=== PATIENT | female | born 1950 | race Caucasian/White ===

== ENCOUNTER 2016-08-07 12:25 | Inpatient (IN) | payer MEDICARE, BC ==
[2016-08-07 13:42] VITALS: BMI 22.2
[2016-08-07] MEDS: Donepezil HCl 10 MG TAB PO SCH (20:50)
[2016-08-07] MEDS: Simvastatin 20 MG TAB PO SCH (20:51)
[2016-08-07] MEDS: FLU VACC TS2016-17(65YR +) 0.5 ML SYRINGE IM ONE (22:01)
[2016-08-08 06:29] LABS: #Basophils 0.1 thou/uL (0.0-0.2); #Eosinphils 0.1 thou/uL (0.0-0.7); #Lymphocytes 2.4 thou/uL (1.20-3.40); #Monocytes 0.7 thou/uL (0.11-0.59); #Neutrophils 6.6 thou/uL (1.40-6.50); %Basophils 0.8 % (0.0-1.0); %Eosinophils 0.5 % (0.0-10.0); %Monocytes 7.1 % (0.0-10.0); Hematocrit 36.3 % (36.0-47.0); Mean Platelet Volume 5.9 fL (7.4-10.4); Red Blood Cell (RBC) Count 3.72 mill/uL (4.20-5.40); White Blood Cell (WBC) Count 9.9 thou/uL (4.8-10.8)
[2016-08-08 06:36] LABS: ALT (SGPT) 37 U/L (0-55); AST (SGOT) 25 U/L (5-34); Alkaline Phosphatase 85 U/L (40-150); Anion Gap 13 mmol/L (10-20); BUN (Urea Nitrogen) 14 mg/dL (9.8-20.1); Bilirubin, Total 0.4 mg/dL (0.2-1.2); Calc. Creatinine Clearance 72 mL/min (70-130); Calcium 9.2 mg/dL (7.8-10.44); Carbon Dioxide 25 mmol/L (23-31); Chloride 107 mmol/L (98-107); Estimated GFR-MDRD 81; Globulin 2.5 g/dL (2.4-3.5); Protein, Total 6.2 g/dL (5.8-8.1)
[2016-08-08] MEDS: Enoxaparin Sodium 30 MG/0.3 ML SYRINGE SC SCH (06:42)
[2016-08-08] MEDS: Montelukast Sodium 10 mg Tablet PO SCH (08:51)
[2016-08-08] MEDS: risperiDONE 0.5 MG TAB PO SCH (08:51)
[2016-08-08] MEDS: FLU VACC TS2016-17(65YR +) 0.5 ML SYRINGE IM ONE (14:00)
[2016-08-08 16:07] LABS: Bilirubin Negative (Negative); Blood, Urine Negative (Negative); Glucose, Urine (Dipstick) Negative (Negative); Ketone, Urine Negative (Negative); Nitrite Negative (Negative); Protein, Urine (Dipstick) Negative (Neg-Trace); Urobilinogen 0.2 mg/dL (0.2-1.0)
[2016-08-08 16:36] LABS: Bacteria/HPF None Seen HPF (None Seen); RBC/HPF None Seen HPF (0-3); WBC/HPF None Seen HPF (0-3)
[2016-08-08] MEDS: Donepezil HCl 10 MG TAB PO SCH (22:02)
[2016-08-08] MEDS: Simvastatin 20 MG TAB PO SCH (22:03)
[2016-08-09] MEDS: Enoxaparin Sodium 30 MG/0.3 ML SYRINGE SC SCH (05:26)
[2016-08-09] MEDS: risperiDONE 0.5 MG TAB PO SCH (09:20)
[2016-08-09] MEDS: Montelukast Sodium 10 mg Tablet PO SCH (09:20)
[2016-08-09] MEDS: Simvastatin 20 MG TAB PO SCH (21:11)
[2016-08-09] MEDS: Donepezil HCl 10 MG TAB PO SCH (21:11)
[2016-08-10] MEDS: Enoxaparin Sodium 30 MG/0.3 ML SYRINGE SC SCH (05:41)
[2016-08-10] MEDS: Acetaminophen 500 MG TAB PO PRN (09:49)
[2016-08-10] MEDS: risperiDONE 0.5 MG TAB PO SCH (09:49)
[2016-08-10] MEDS: Montelukast Sodium 10 mg Tablet PO SCH (09:49)
[2016-08-10] MEDS: Donepezil HCl 10 MG TAB PO SCH (21:00)
[2016-08-10] MEDS: Simvastatin 20 MG TAB PO SCH (21:03)
[2016-08-11] MEDS: Enoxaparin Sodium 30 MG/0.3 ML SYRINGE SC SCH (05:27)
[2016-08-11] MEDS: Acetaminophen 500 MG TAB PO PRN (09:06)
[2016-08-11] MEDS: risperiDONE 0.5 MG TAB PO SCH (09:06)
[2016-08-11] MEDS: Montelukast Sodium 10 mg Tablet PO SCH (09:06)
[2016-08-11] MEDS: Donepezil HCl 10 MG TAB PO SCH (21:15)
[2016-08-11] MEDS: Simvastatin 20 MG TAB PO SCH (21:20)
[2016-08-12] MEDS: Enoxaparin Sodium 30 MG/0.3 ML SYRINGE SC SCH (05:09)
[2016-08-12] MEDS: risperiDONE 0.5 MG TAB PO SCH (08:50)
[2016-08-12] MEDS: Montelukast Sodium 10 mg Tablet PO SCH (08:51)
[2016-08-12] MEDS: Simvastatin 20 MG TAB PO SCH (21:04)
[2016-08-12] MEDS: Donepezil HCl 10 MG TAB PO SCH (21:04)
[2016-08-13] MEDS: Enoxaparin Sodium 30 MG/0.3 ML SYRINGE SC SCH (05:41)
[2016-08-13] MEDS: risperiDONE 0.5 MG TAB PO SCH (10:37)
[2016-08-13] MEDS: Montelukast Sodium 10 mg Tablet PO SCH (10:37)
[2016-08-13] MEDS: Donepezil HCl 10 MG TAB PO SCH (20:49)
[2016-08-13] MEDS: Simvastatin 20 MG TAB PO SCH (20:50)
[2016-08-14] MEDS: Enoxaparin Sodium 30 MG/0.3 ML SYRINGE SC SCH (06:00)
[2016-08-14] MEDS: Montelukast Sodium 10 mg Tablet PO SCH (08:24)
[2016-08-14] MEDS: risperiDONE 0.5 MG TAB PO SCH (08:24)
[2016-08-14] MEDS: Simvastatin 20 MG TAB PO SCH (21:12)
[2016-08-14] MEDS: Donepezil HCl 10 MG TAB PO SCH (21:13)
[2016-08-15] MEDS: Enoxaparin Sodium 30 MG/0.3 ML SYRINGE SC SCH (05:12)
[2016-08-15] MEDS: Montelukast Sodium 10 mg Tablet PO SCH (10:36)
[2016-08-15] MEDS: Acetaminophen 500 MG TAB PO PRN (10:36)
[2016-08-15] MEDS: risperiDONE 0.5 MG TAB PO SCH (10:36)
[2016-08-15] MEDS: Donepezil HCl 10 MG TAB PO SCH (20:43)
[2016-08-15] MEDS: Simvastatin 20 MG TAB PO SCH (20:43)
[2016-08-16] MEDS: Enoxaparin Sodium 30 MG/0.3 ML SYRINGE SC SCH (06:00)
[2016-08-16] MEDS: Acetaminophen 500 MG TAB PO PRN (09:03)
[2016-08-16] MEDS: risperiDONE 0.5 MG TAB PO SCH (09:03)
[2016-08-16] MEDS: Montelukast Sodium 10 mg Tablet PO SCH (09:03)
[2016-08-16] MEDS: Donepezil HCl 10 MG TAB PO SCH (21:26)
[2016-08-16] MEDS: Simvastatin 20 MG TAB PO SCH (21:26)
[2016-08-17] MEDS: Acetaminophen 500 MG TAB PO PRN (01:11)
[2016-08-17] MEDS: Enoxaparin Sodium 30 MG/0.3 ML SYRINGE SC SCH (05:12)
[2016-08-17] MEDS: risperiDONE 0.5 MG TAB PO SCH (08:24)
[2016-08-17] MEDS: Montelukast Sodium 10 mg Tablet PO SCH (08:24)
[2016-08-17] MEDS: Donepezil HCl 10 MG TAB PO SCH (20:26)
[2016-08-17] MEDS: Simvastatin 20 MG TAB PO SCH (20:27)
[2016-08-18] MEDS: Enoxaparin Sodium 30 MG/0.3 ML SYRINGE SC SCH (05:31)
[2016-08-18] MEDS: Montelukast Sodium 10 mg Tablet PO SCH (08:39)
[2016-08-18] MEDS: risperiDONE 0.5 MG TAB PO SCH (08:39)
[2016-08-18] MEDS: Donepezil HCl 10 MG TAB PO SCH (20:41)
[2016-08-18] MEDS: Simvastatin 20 MG TAB PO SCH (20:41)
[2016-08-18] MEDS: Lorazepam 0.5 MG TAB PO PRN (20:41)
[2016-08-19] MEDS: Enoxaparin Sodium 30 MG/0.3 ML SYRINGE SC SCH (06:00)
[2016-08-19] MEDS: Montelukast Sodium 10 mg Tablet PO SCH (09:34)
[2016-08-19] MEDS: risperiDONE 0.5 MG TAB PO SCH (09:35)
[2016-08-19] MEDS: Simvastatin 20 MG TAB PO SCH (20:56)
[2016-08-19] MEDS: Donepezil HCl 10 MG TAB PO SCH (20:56)
[2016-08-20] MEDS: Enoxaparin Sodium 30 MG/0.3 ML SYRINGE SC SCH (05:45)
[2016-08-20] MEDS: risperiDONE 0.5 MG TAB PO SCH (08:36)
[2016-08-20] MEDS: Montelukast Sodium 10 mg Tablet PO SCH (08:36)
[2016-08-20] MEDS: Simvastatin 20 MG TAB PO SCH (20:24)
[2016-08-20] MEDS: Donepezil HCl 10 MG TAB PO SCH (20:25)
[2016-08-20] MEDS: Lorazepam 0.5 MG TAB PO PRN (20:26)
[2016-08-21] MEDS: Enoxaparin Sodium 30 MG/0.3 ML SYRINGE SC SCH (05:52)
[2016-08-21] MEDS: risperiDONE 0.5 MG TAB PO SCH (08:21)
[2016-08-21] MEDS: Montelukast Sodium 10 mg Tablet PO SCH (08:22)
[2016-08-21] MEDS: Acetaminophen 500 MG TAB PO PRN (20:38)
[2016-08-21] MEDS: Lorazepam 0.5 MG TAB PO PRN (20:38)
[2016-08-21] MEDS: Donepezil HCl 10 MG TAB PO SCH (20:38)
[2016-08-21] MEDS: Simvastatin 20 MG TAB PO SCH (20:39)
[2016-08-22] MEDS: Enoxaparin Sodium 30 MG/0.3 ML SYRINGE SC SCH (05:56)
[2016-08-22] MEDS: Montelukast Sodium 10 mg Tablet PO SCH (09:08)
[2016-08-22] MEDS: Lorazepam 0.5 MG TAB PO PRN ×2 (09:09→21:04)
[2016-08-22] MEDS: risperiDONE 0.5 MG TAB PO SCH (09:09)
[2016-08-22] MEDS: Donepezil HCl 10 MG TAB PO SCH (21:02)
[2016-08-22] MEDS: Acetaminophen 500 MG TAB PO PRN (21:03)
[2016-08-22] MEDS: Simvastatin 20 MG TAB PO SCH (21:03)
[2016-08-23] MEDS: Enoxaparin Sodium 30 MG/0.3 ML SYRINGE SC SCH (05:54)
[2016-08-23] MEDS: risperiDONE 0.5 MG TAB PO SCH (09:58)
[2016-08-23] MEDS: Montelukast Sodium 10 mg Tablet PO SCH (09:58)
[2016-08-23] MEDS: Acetaminophen 500 MG TAB PO PRN (20:19)
[2016-08-23] MEDS: Simvastatin 20 MG TAB PO SCH (20:20)
[2016-08-23] MEDS: Donepezil HCl 10 MG TAB PO SCH (20:20)
[2016-08-24] MEDS: Enoxaparin Sodium 30 MG/0.3 ML SYRINGE SC SCH (06:09)
[2016-08-24] MEDS: Montelukast Sodium 10 mg Tablet PO SCH (08:56)
[2016-08-24] MEDS: risperiDONE 0.5 MG TAB PO SCH (08:56)
[2016-08-24] MEDS: Acetaminophen 500 MG TAB PO PRN (16:21)
[2016-08-24] MEDS: Donepezil HCl 10 MG TAB PO SCH (20:47)
[2016-08-24] MEDS: Simvastatin 20 MG TAB PO SCH (20:47)
[2016-08-25] MEDS: Lorazepam 0.5 MG TAB PO PRN ×2 (00:31→20:15)
[2016-08-25] MEDS: Acetaminophen 500 MG TAB PO PRN ×3 (00:31→20:14)
[2016-08-25] MEDS: Enoxaparin Sodium 30 MG/0.3 ML SYRINGE SC SCH (05:18)
[2016-08-25] MEDS: risperiDONE 0.5 MG TAB PO SCH (09:07)
[2016-08-25] MEDS: Montelukast Sodium 10 mg Tablet PO SCH (09:07)
[2016-08-25] MEDS: Simvastatin 20 MG TAB PO SCH (20:14)
[2016-08-25] MEDS: Donepezil HCl 10 MG TAB PO SCH (20:15)
[2016-08-26] MEDS: Enoxaparin Sodium 30 MG/0.3 ML SYRINGE SC SCH (05:39)
[2016-08-26] MEDS: Montelukast Sodium 10 mg Tablet PO SCH (09:13)
[2016-08-26] MEDS: risperiDONE 0.5 MG TAB PO SCH (09:14)
[2016-08-26] MEDS: Simvastatin 20 MG TAB PO SCH (20:44)
[2016-08-26] MEDS: Donepezil HCl 10 MG TAB PO SCH (20:44)
[2016-08-26] MEDS: Lorazepam 0.5 MG TAB PO PRN (20:44)
[2016-08-27] MEDS: Enoxaparin Sodium 30 MG/0.3 ML SYRINGE SC SCH (06:09)
[2016-08-27] MEDS: risperiDONE 0.5 MG TAB PO SCH (09:32)
[2016-08-27] MEDS: Montelukast Sodium 10 mg Tablet PO SCH (09:32)
[2016-08-27] MEDS: Simvastatin 20 MG TAB PO SCH (21:25)
[2016-08-27] MEDS: Donepezil HCl 10 MG TAB PO SCH (21:25)
[2016-08-28] MEDS: Enoxaparin Sodium 30 MG/0.3 ML SYRINGE SC SCH (05:29)
[2016-08-28] MEDS: Montelukast Sodium 10 mg Tablet PO SCH (09:15)
[2016-08-28] MEDS: risperiDONE 0.5 MG TAB PO SCH (09:15)
[2016-08-28] MEDS: Simvastatin 20 MG TAB PO SCH (20:47)
[2016-08-28] MEDS: Donepezil HCl 10 MG TAB PO SCH (20:48)
[2016-08-29] MEDS: Enoxaparin Sodium 30 MG/0.3 ML SYRINGE SC SCH (05:39)
[2016-08-29] MEDS: Acetaminophen 500 MG TAB PO PRN (08:44)
[2016-08-29] MEDS: risperiDONE 0.5 MG TAB PO SCH (08:44)
[2016-08-29] MEDS: Montelukast Sodium 10 mg Tablet PO SCH (08:44)
[2016-08-29] MEDS: Simvastatin 20 MG TAB PO SCH (20:38)
[2016-08-29] MEDS: Donepezil HCl 10 MG TAB PO SCH (20:38)
[2016-08-29] MEDS: Lorazepam 0.5 MG TAB PO PRN (22:02)
[2016-08-30] MEDS: Enoxaparin Sodium 30 MG/0.3 ML SYRINGE SC SCH (05:21)
[2016-08-30] MEDS: Montelukast Sodium 10 mg Tablet PO SCH (10:50)
[2016-08-30] MEDS: risperiDONE 0.5 MG TAB PO SCH (10:51)
[2016-08-30] MEDS: Donepezil HCl 10 MG TAB PO SCH (20:50)
[2016-08-30] MEDS: Simvastatin 20 MG TAB PO SCH (20:50)
[2016-08-30] MEDS: Lorazepam 0.5 MG TAB PO PRN (21:53)
[2016-08-31] MEDS: Enoxaparin Sodium 30 MG/0.3 ML SYRINGE SC SCH (05:12)
[2016-08-31] MEDS: risperiDONE 0.5 MG TAB PO SCH (10:24)
[2016-08-31] MEDS: Montelukast Sodium 10 mg Tablet PO SCH (10:25)
[2016-08-31] MEDS: Donepezil HCl 10 MG TAB PO SCH (21:18)
[2016-08-31] MEDS: Simvastatin 20 MG TAB PO SCH (21:18)
[2016-09-01] MEDS: Enoxaparin Sodium 30 MG/0.3 ML SYRINGE SC SCH (06:10)
[2016-09-01] MEDS: Montelukast Sodium 10 mg Tablet PO SCH (09:10)
[2016-09-01] MEDS: risperiDONE 0.5 MG TAB PO SCH (09:11)
[2016-09-01] MEDS: Simvastatin 20 MG TAB PO SCH (20:56)
[2016-09-01] MEDS: Donepezil HCl 10 MG TAB PO SCH (20:56)
[2016-09-01 22:09] LABS: Bilirubin Negative (Negative); Blood, Urine Small (Negative); Glucose, Urine (Dipstick) Negative (Negative); Ketone, Urine Negative (Negative); Nitrite Negative (Negative); Protein, Urine (Dipstick) Negative (Neg-Trace); Urobilinogen 0.2 mg/dL (0.2-1.0)
[2016-09-01 22:11] LABS: Bacteria/HPF 3+ HPF (None Seen); Squamous Epithelial 0-3 HPF (0-3)
[2016-09-01] MEDS ORDERED: Sulfameth/Trimethoprim DS 800-160mg TAB PO SCH (22:30)
[2016-09-02] MEDS: Enoxaparin Sodium 30 MG/0.3 ML SYRINGE SC SCH (05:16)
[2016-09-02] MEDS: Sulfameth/Trimethoprim DS 800-160mg TAB PO SCH ×2 (09:24→20:49)
[2016-09-02] MEDS: risperiDONE 0.5 MG TAB PO SCH (09:25)
[2016-09-02] MEDS: Montelukast Sodium 10 mg Tablet PO SCH (09:25)
[2016-09-02] MEDS: Simvastatin 20 MG TAB PO SCH (20:47)
[2016-09-02] MEDS: Donepezil HCl 10 MG TAB PO SCH (20:48)
[2016-09-02] MEDS: Lorazepam 0.5 MG TAB PO PRN (22:18)
[2016-09-03] MEDS: Enoxaparin Sodium 30 MG/0.3 ML SYRINGE SC SCH (05:21)
[2016-09-03] MEDS: risperiDONE 0.5 MG TAB PO SCH (09:56)
[2016-09-03] MEDS: Sulfameth/Trimethoprim DS 800-160mg TAB PO SCH ×2 (09:57→20:55)
[2016-09-03] MEDS: Montelukast Sodium 10 mg Tablet PO SCH (09:57)
[2016-09-03] MEDS: Lorazepam 0.5 MG TAB PO PRN (20:54)
[2016-09-03] MEDS: Acetaminophen 500 MG TAB PO PRN (20:55)
[2016-09-03] MEDS: Simvastatin 20 MG TAB PO SCH (20:55)
[2016-09-03] MEDS: Donepezil HCl 10 MG TAB PO SCH (20:56)
[2016-09-04] MEDS: Enoxaparin Sodium 30 MG/0.3 ML SYRINGE SC SCH (05:52)
[2016-09-04] MEDS: Montelukast Sodium 10 mg Tablet PO SCH (09:24)
[2016-09-04] MEDS: risperiDONE 0.5 MG TAB PO SCH (09:24)
[2016-09-04] MEDS: Sulfameth/Trimethoprim DS 800-160mg TAB PO SCH ×2 (09:24→20:36)
[2016-09-04] MEDS: Acetaminophen 500 MG TAB PO PRN (20:36)
[2016-09-04] MEDS: Simvastatin 20 MG TAB PO SCH (20:36)
[2016-09-04] MEDS: Lorazepam 0.5 MG TAB PO PRN (20:37)
[2016-09-04] MEDS: Donepezil HCl 10 MG TAB PO SCH (20:37)
[2016-09-05] MEDS: Enoxaparin Sodium 30 MG/0.3 ML SYRINGE SC SCH (05:55)
[2016-09-05] MEDS: Sulfameth/Trimethoprim DS 800-160mg TAB PO SCH ×2 (09:03→20:17)
[2016-09-05] MEDS: Montelukast Sodium 10 mg Tablet PO SCH (09:03)
[2016-09-05] MEDS: risperiDONE 0.5 MG TAB PO SCH (09:03)
[2016-09-05] MEDS: Donepezil HCl 10 MG TAB PO SCH (20:16)
[2016-09-05] MEDS: Simvastatin 20 MG TAB PO SCH (20:16)
[2016-09-05] MEDS: Lorazepam 0.5 MG TAB PO PRN (20:17)
[2016-09-05] MEDS: Acetaminophen 500 MG TAB PO PRN (20:17)
[2016-09-06] MEDS: Enoxaparin Sodium 30 MG/0.3 ML SYRINGE SC SCH (05:40)
[2016-09-06] MEDS: Sulfameth/Trimethoprim DS 800-160mg TAB PO SCH (08:42)
[2016-09-06] MEDS: Montelukast Sodium 10 mg Tablet PO SCH (08:43)
[2016-09-06] MEDS: risperiDONE 0.5 MG TAB PO SCH (08:43)
[2016-09-06] MEDS: Donepezil HCl 10 MG TAB PO SCH (20:25)
[2016-09-06] MEDS: Acetaminophen 500 MG TAB PO PRN (20:25)
[2016-09-06] MEDS: Simvastatin 20 MG TAB PO SCH (20:25)
[2016-09-07] MEDS: Enoxaparin Sodium 30 MG/0.3 ML SYRINGE SC SCH (05:18)
[2016-09-07] MEDS: Montelukast Sodium 10 mg Tablet PO SCH (09:07)
[2016-09-07] MEDS: risperiDONE 0.5 MG TAB PO SCH (09:07)
[2016-09-07] MEDS: Donepezil HCl 10 MG TAB PO SCH (21:42)
[2016-09-07] MEDS: Simvastatin 20 MG TAB PO SCH (21:42)
[2016-09-07] MEDS: Lorazepam 0.5 MG TAB PO PRN (21:43)
[2016-09-08] MEDS: Enoxaparin Sodium 30 MG/0.3 ML SYRINGE SC SCH (05:23)
[2016-09-08] MEDS: Montelukast Sodium 10 mg Tablet PO SCH (09:48)
[2016-09-08] MEDS: risperiDONE 0.5 MG TAB PO SCH (09:49)
[2016-09-08] MEDS: Simvastatin 20 MG TAB PO SCH (21:41)
[2016-09-08] MEDS: Donepezil HCl 10 MG TAB PO SCH (21:42)
[2016-09-09] MEDS: Enoxaparin Sodium 30 MG/0.3 ML SYRINGE SC SCH (06:30)
[2016-09-09] MEDS: Montelukast Sodium 10 mg Tablet PO SCH (09:16)
[2016-09-09] MEDS: risperiDONE 0.5 MG TAB PO SCH (09:16)
[2016-09-09] MEDS: Donepezil HCl 10 MG TAB PO SCH (21:19)
[2016-09-09] MEDS: Simvastatin 20 MG TAB PO SCH (21:19)
[2016-09-09] MEDS: Acetaminophen 500 MG TAB PO PRN (21:20)
[2016-09-10] MEDS: Enoxaparin Sodium 30 MG/0.3 ML SYRINGE SC SCH (05:37)
[2016-09-10] MEDS: risperiDONE 0.5 MG TAB PO SCH (08:28)
[2016-09-10] MEDS: Montelukast Sodium 10 mg Tablet PO SCH (08:28)
[2016-09-10] MEDS: Donepezil HCl 10 MG TAB PO SCH (20:15)
[2016-09-10] MEDS: Simvastatin 20 MG TAB PO SCH (20:15)
[2016-09-11] MEDS: Enoxaparin Sodium 30 MG/0.3 ML SYRINGE SC SCH (05:04)
[2016-09-11] MEDS: risperiDONE 0.5 MG TAB PO SCH (11:12)
[2016-09-11] MEDS: Montelukast Sodium 10 mg Tablet PO SCH (11:12)
[2016-09-11] MEDS: Acetaminophen 500 MG TAB PO PRN (20:32)
[2016-09-11] MEDS: Simvastatin 20 MG TAB PO SCH (20:32)
[2016-09-11] MEDS: Lorazepam 0.5 MG TAB PO PRN (20:32)
[2016-09-11] MEDS: Donepezil HCl 10 MG TAB PO SCH (20:33)
[2016-09-12] MEDS: Enoxaparin Sodium 30 MG/0.3 ML SYRINGE SC SCH (05:30)
[2016-09-12] MEDS: risperiDONE 0.5 MG TAB PO SCH (09:36)
[2016-09-12] MEDS: Montelukast Sodium 10 mg Tablet PO SCH (09:38)
[2016-09-12] MEDS: Donepezil HCl 10 MG TAB PO SCH (20:56)
[2016-09-12] MEDS: Simvastatin 20 MG TAB PO SCH (20:56)
[2016-09-13] MEDS: Enoxaparin Sodium 30 MG/0.3 ML SYRINGE SC SCH (05:28)
[2016-09-13] MEDS: Acetaminophen 500 MG TAB PO PRN (05:28)
[2016-09-13] MEDS: Montelukast Sodium 10 mg Tablet PO SCH (09:49)
[2016-09-13] MEDS: risperiDONE 0.5 MG TAB PO SCH (09:50)
[2016-09-13] MEDS: Donepezil HCl 10 MG TAB PO SCH (21:43)
[2016-09-13] MEDS: Simvastatin 20 MG TAB PO SCH (21:43)
[2016-09-14] MEDS: Enoxaparin Sodium 30 MG/0.3 ML SYRINGE SC SCH (05:33)
[2016-09-14] MEDS: risperiDONE 0.5 MG TAB PO SCH (09:47)
[2016-09-14] MEDS: Montelukast Sodium 10 mg Tablet PO SCH (09:48)
[2016-09-14] MEDS: Simvastatin 20 MG TAB PO SCH (21:14)
[2016-09-14] MEDS: Donepezil HCl 10 MG TAB PO SCH (21:15)
[2016-09-14] MEDS: Lorazepam 0.5 MG TAB PO PRN (21:37)
[2016-09-15] MEDS: Enoxaparin Sodium 30 MG/0.3 ML SYRINGE SC SCH (05:25)
[2016-09-15] MEDS: Montelukast Sodium 10 mg Tablet PO SCH (08:28)
[2016-09-15] MEDS: risperiDONE 0.5 MG TAB PO SCH (08:28)
[2016-09-15] MEDS: Lorazepam 0.5 MG TAB PO PRN ×2 (08:29→20:21)
[2016-09-15] MEDS: Acetaminophen 500 MG TAB PO PRN (20:21)
[2016-09-15] MEDS: Donepezil HCl 10 MG TAB PO SCH (20:21)
[2016-09-15] MEDS: Simvastatin 20 MG TAB PO SCH (20:21)
[2016-09-16] MEDS: Enoxaparin Sodium 30 MG/0.3 ML SYRINGE SC SCH (05:42)
[2016-09-16] MEDS: risperiDONE 0.5 MG TAB PO SCH (11:39)
[2016-09-16] MEDS: Montelukast Sodium 10 mg Tablet PO SCH (11:39)
[2016-09-16] MEDS: Lorazepam 0.5 MG TAB PO PRN (20:35)
[2016-09-16] MEDS: Simvastatin 20 MG TAB PO SCH (20:35)
[2016-09-16] MEDS: Donepezil HCl 10 MG TAB PO SCH (20:35)
[2016-09-17] MEDS: Enoxaparin Sodium 30 MG/0.3 ML SYRINGE SC SCH (05:32)
[2016-09-17] MEDS: Montelukast Sodium 10 mg Tablet PO SCH (08:45)
[2016-09-17] MEDS: risperiDONE 0.5 MG TAB PO SCH (08:45)
[2016-09-17] MEDS: Donepezil HCl 10 MG TAB PO SCH (20:31)
[2016-09-17] MEDS: Simvastatin 20 MG TAB PO SCH (20:31)
[2016-09-17] MEDS: Lorazepam 0.5 MG TAB PO PRN (20:31)
[2016-09-18] MEDS: Enoxaparin Sodium 30 MG/0.3 ML SYRINGE SC SCH (05:57)
[2016-09-18] MEDS: Montelukast Sodium 10 mg Tablet PO SCH (08:40)
[2016-09-18] MEDS: risperiDONE 0.5 MG TAB PO SCH (08:40)
[2016-09-18] MEDS: Lorazepam 0.5 MG TAB PO PRN (20:21)
[2016-09-18] MEDS: Donepezil HCl 10 MG TAB PO SCH (20:21)
[2016-09-18] MEDS: Simvastatin 20 MG TAB PO SCH (20:21)
[2016-09-19] MEDS: Enoxaparin Sodium 30 MG/0.3 ML SYRINGE SC SCH (06:08)
[2016-09-19] MEDS: Montelukast Sodium 10 mg Tablet PO SCH (09:41)
[2016-09-19] MEDS: risperiDONE 0.5 MG TAB PO SCH (09:41)
[2016-09-19] MEDS: Simvastatin 20 MG TAB PO SCH (20:17)
[2016-09-19] MEDS: Donepezil HCl 10 MG TAB PO SCH (20:18)
[2016-09-19] MEDS: Lorazepam 0.5 MG TAB PO PRN (20:18)
[2016-09-19] MEDS: Acetaminophen 500 MG TAB PO PRN (20:18)
[2016-09-20] MEDS: Enoxaparin Sodium 30 MG/0.3 ML SYRINGE SC SCH (05:38)
[2016-09-20] MEDS: Montelukast Sodium 10 mg Tablet PO SCH (08:51)
[2016-09-20] MEDS: risperiDONE 0.5 MG TAB PO SCH (08:51)
[2016-09-20] MEDS ORDERED: Lorazepam 0.5 MG TAB ONE (20:39)
[2016-09-20] MEDS: Simvastatin 20 MG TAB PO SCH (20:44)
[2016-09-20] MEDS: Lorazepam 0.5 MG TAB PO PRN (20:44)
[2016-09-20] MEDS: Donepezil HCl 10 MG TAB PO SCH (20:45)
[2016-09-20] MEDS: Acetaminophen 500 MG TAB PO PRN (22:45)
[2016-09-21] MEDS: Enoxaparin Sodium 30 MG/0.3 ML SYRINGE SC SCH (05:20)
[2016-09-21] MEDS: risperiDONE 0.5 MG TAB PO SCH (10:50)
[2016-09-21] MEDS: Montelukast Sodium 10 mg Tablet PO SCH (10:51)
[2016-09-21] MEDS: Acetaminophen 500 MG TAB PO PRN ×2 (11:11→20:59)
[2016-09-21] MEDS: Donepezil HCl 10 MG TAB PO SCH (20:58)
[2016-09-21] MEDS: Simvastatin 20 MG TAB PO SCH (20:58)
[2016-09-21] MEDS: Lorazepam 0.5 MG TAB PO PRN (20:59)
[2016-09-22] MEDS: Enoxaparin Sodium 30 MG/0.3 ML SYRINGE SC SCH (06:18)
[2016-09-22] MEDS: risperiDONE 0.5 MG TAB PO SCH (08:36)
[2016-09-22] MEDS: Lorazepam 0.5 MG TAB PO PRN ×2 (08:36→20:33)
[2016-09-22] MEDS: Acetaminophen 500 MG TAB PO PRN ×2 (08:36→20:33)
[2016-09-22] MEDS: Montelukast Sodium 10 mg Tablet PO SCH (08:36)
[2016-09-22] MEDS: Donepezil HCl 10 MG TAB PO SCH (20:33)
[2016-09-22] MEDS: Simvastatin 20 MG TAB PO SCH (20:33)
[2016-09-23] MEDS: Enoxaparin Sodium 30 MG/0.3 ML SYRINGE SC SCH (06:00)
[2016-09-23 06:42] VITALS: BP 116/58; TEMP 97.7
[2016-09-23] MEDS: Montelukast Sodium 10 mg Tablet PO SCH (09:02)
[2016-09-23] MEDS: risperiDONE 0.5 MG TAB PO SCH (09:02)
--- NOTE | 2016-09-24 04:58 | DIS ---
DATE OF ADMISSION: 08/07/2016 DATE OF DISCHARGE: 09/23/2016 ADMISSION DIAGNOSES: Physical deconditioning, dementia, hyperlipidemia, gastroesophageal reflux disease, and urinary tract infection. DISCHARGE DIAGNOSES: Dementia, hyperlipidemia, and gastroesophageal reflux disease. PROCEDURES: None. HOSPITAL COURSE: A 66-year-old female presented as a transfer of care from [facility] where she was treated for rhabdomyolysis, altered mental status felt to be secondary to her underlying dementia and complicated by urinary tract infection and frequent falls. Prior to her admission, she was a resident at assisted living at [facility]. She was successfully treated for her acute conditions and transferred for physical therapy, occupational therapy secondary to her deconditioned state. She steadily improved with the ability to be able to transfer to long care facility secondary to her chronic dementia and inability to satisfactorily take care of herself in an assisted living. She had an extended stay secondary to complications involving the family transitioning the patient to a long-term care facility. Eventually, she was successfully enabled to transfer to [facility] where she will be discharged to today for continued care. During her stay, she was treated for a urinary tract infection successfully. As noted, she does have underlying dementia with her usual medications having been resumed and lorazepam added for p.r.n. use for periods of agitation and concerns relating to her having difficulty getting to sleep at night. She is currently hemodynamically stable and appropriate for discharge to [facility]. DISPOSITION: This patient will transfer to [facility] and will be followed by myself at that facility. DISCHARGE MEDICATIONS: Include citalopram 20 mg p.o. daily, Risperdal 0.5 mg p.o. daily, pravastatin 20 mg p.o. at bedtime, omeprazole 40 mg p.o. daily, Singulair 10 mg p.o. daily, Namenda 10 mg p.o. daily, Aricept 5 mg p.o. at bedtime, lorazepam 0.5 mg p.o. q.8 hours p.r.n., Tylenol 500 mg p.o. q.6 hours p.r.n. MTDD
== END 2016-09-23 18:00 | DRG 884 ==
LOC: BURMED 13:11
PROVIDERS: ADMIT Family Medicine; ATTEND Family Medicine
DX: F03.91 Unspecified dementia, unspecified severity, with behavioral disturbance (principal); M62.82 Rhabdomyolysis; N39.0 Urinary tract infection, site not specified; K21.9 Gastro-esophageal reflux disease without esophagitis; E78.5 Hyperlipidemia, unspecified; G47.00 Insomnia, unspecified; Z23 Encounter for immunization; Z88.0 Allergy status to penicillin; Z91.81 History of falling
CPT/HCPCS: 36415; 80053; 81001; 85025; 87086; 90471; 90662; 90732; A4353; G0008; G0009; G8978-GP-CK; G8979-GP-CI; G8987-GO-CK; G8988-GO-CJ; J1650

== ENCOUNTER 2017-05-02 09:50 | Emergency (ER) | payer MEDICARE, BC, MEDICAID ==
[2017-05-02 10:35] LABS: #Basophils 0.1 thou/uL (0.0-0.2); #Eosinphils 0.1 thou/uL (0.0-0.7); #Lymphocytes 2.2 thou/uL (1.20-3.40); #Monocytes 0.6 thou/uL (0.11-0.59); #Neutrophils 3.5 thou/uL (1.40-6.50); %Basophils 0.9 % (0.0-1.0); %Eosinophils 0.8 % (0.0-10.0); %Lymphocytes 34.1 % (21.0-51.0); %Monocytes 9.3 % (0.0-10.0); %Neutrophils 54.9 % (42.0-75.0); Hemoglobin 13.4 g/dL (12.0-16.0); MDiff Complete? YES; Macrocytosis SLIGHT = 6-15 cells (100X) (0-5/hpf); Mean Corpuscular HGB CONC 35.4 g/dL (32.0-36.0); Mean Corpuscular Hemoglobin 34.7 pg (27.0-31.0); Mean Corpuscular Volume 98.1 fl (81.0-99.0); Mean Platelet Volume 6.5 fL (7.4-10.4); Platelet Count 187 thou/uL (130-400); RBC Distribution Width 11.6 % (11.5-14.5); Red Blood Cell (RBC) Count 3.86 mill/uL (4.20-5.40); White Blood Cell (WBC) Count 6.4 thou/uL (4.8-10.8)
[2017-05-02 10:38] LABS: ALT (SGPT) 14 U/L (8-55); AST (SGOT) 32 U/L (5-34); Alkaline Phosphatase 69 U/L (40-150); Anion Gap 13 mmol/L (10-20); BUN (Urea Nitrogen) 19 mg/dL (9.8-20.1); Bilirubin Small (Negative); Bilirubin, Total 0.6 mg/dL (0.2-1.2); Blood, Urine Negative (Negative); Calc. Creatinine Clearance 0 mL/min (70-130); Calcium 9.4 mg/dL (7.8-10.44); Carbon Dioxide 26 mmol/L (23-31); Chloride 109 mmol/L (98-107); Clarity Cloudy (Clear); Estimated GFR-MDRD 84; Globulin 2.3 g/dL (2.4-3.5); Glucose 94 mg/dL (80-115); Glucose, Urine (Dipstick) Negative (Negative); Leukocyte Negative (Negative); Nitrite Negative (Negative); Potassium 3.9 mmol/L (3.5-5.1); Protein, Total 6.3 g/dL (6.0-8.3); Protein, Urine (Dipstick) Negative (Neg-Trace); Sodium 144 mmol/L (136-145); pH, Urine 5.5 (5.0-9.0)
[2017-05-02 10:39] LABS: Specific Gravity, Urine 1.027 (1.005-1.030)
--- NOTE | 2017-05-02 10:39 | RAD ---
FRONTAL VIEW CHEST: COMPARISON: No prior comparison. INDICATION: Emergency exam. Dementia with weakness and dehydration. FINDINGS: There is a density overlying the chest bilaterally which may be related to breast implants. Otherwi se, no consolidation identified within the pulmonary parenchyma. There is no significant effusion o r discrete pneumothorax. Cardiac silhouette is within normal limits of size. There is chronic-appe aring osseous hypertrophy of the lateral aspect of the left clavicle. IMPRESSION: No focal consolidation. POS: [facility]
== END 2017-05-02 12:24 ==
LOC: BURERS 09:50
DX: E86.0 Dehydration (principal); E78.5 Hyperlipidemia, unspecified; K21.9 Gastro-esophageal reflux disease without esophagitis; J44.9 Chronic obstructive pulmonary disease, unspecified; F03.90 Unspecified dementia, unspecified severity, without behavioral disturbance, psychotic disturbance, mood disturbance, and anxiety; F41.9 Anxiety disorder, unspecified; Z79.899 Other long term (current) drug therapy
CPT/HCPCS: 51701; 71010; 80053; 81003; 85025; 93005; 96360; A4353

== ENCOUNTER 2018-02-10 16:15 | Inpatient (IN) | payer MEDICARE, BC, MEDICAID ==
[2018-02-10] MEDS ORDERED: Acetaminophen 650 MG Suppository ONE ×2 (16:27→22:47)
[2018-02-10 16:54] LABS: Bilirubin Negative (Negative); Clarity Turbid (Clear); Glucose, Urine (Dipstick) Negative (Negative); Leukocyte Large (Negative); Nitrite Positive (Negative); Protein, Urine (Dipstick) 100 mg/dL (Neg-Trace); Specific Gravity, Urine 1.015 (1.005-1.030); pH, Urine 6.5 (5.0-9.0)
[2018-02-10 16:55] LABS: Blood, Urine Large (Negative)
[2018-02-10 16:57] LABS: Bacteria/HPF 2+ HPF (None Seen); Crystals/HPF None Seen HPF (Negative); Hyaline Casts/LPF NONE SEEN LPF (0-3 Hyaline); Other Casts/LPF None Seen LPF (0-3 Hyaline); Oval Fat Bodies/HPF None Seen HPF (None Seen); Renal Epithelial None Seen HPF (0-3); Sperm/HPF None Seen HPF (None Seen); Squamous Epithelial 0-3 HPF (0-3); Transitional Epithelial NONE SEEN HPF (0-3); Trichomonas/HPF None Seen HPF (None Seen); Yeast-All Forms None Seen HPF (None Seen)
[2018-02-10] MEDS ORDERED: cefTRIAXone\\ROCEPHIN 2 GM VIAL ONE (17:04)
[2018-02-10] MEDS ORDERED: Sodium Chloride 0.9% 100 ML ONE (17:04)
--- NOTE | 2018-02-10 17:05 | RAD ---
FRONTAL RADIOGRAPH CHEST PORTABLE SUPINE 02/10/18 COMPARISON: 05/02/17 HISTORY: Fever, sepsis, emphysema. FINDINGS: There is calcification in the region of the left coracoclavicular interspace, stable, suggesting prio r injury. There is no focal consolidation, or alveolar edema. The heart and mediastinal contours are unremarkable. Supine imaging limits assessment for pneumothorax and pleural fluid. IMPRESSION: No acute findings. POS: [facility]
[2018-02-10 17:06] LABS: ALT (SGPT) 45 U/L (8-55); AST (SGOT) 65 U/L (5-34); Albumin 3.4 g/dL (3.4-4.8); Alkaline Phosphatase 69 U/L (40-150); Anion Gap 13 mmol/L (10-20); BUN (Urea Nitrogen) 30 mg/dL (9.8-20.1); Bilirubin, Total 0.8 mg/dL (0.2-1.2); Calc. Creatinine Clearance 0 mL/min (70-130); Calcium 8.5 mg/dL (7.8-10.44); Carbon Dioxide 18 mmol/L (23-31); Chloride 110 mmol/L (98-107); Estimated GFR-MDRD 63; Globulin 2.7 g/dL (2.4-3.5); Glucose 141 mg/dL (80-115); Potassium 4.1 mmol/L (3.5-5.1); Protein, Total 6.1 g/dL (6.0-8.3); Sodium 137 mmol/L (136-145)
[2018-02-10 17:24] LABS: Band 12 % (5-11); Lymphocytes 3 % (21-51); MDiff Complete? YES; Mean Corpuscular HGB CONC 36.1 g/dL (32.0-36.0); Mean Corpuscular Hemoglobin 31.8 pg (27.0-31.0); Mean Corpuscular Volume 88.1 fL (78.0-98.0); Monocytes 4 % (0-10); Neutrophil 81 % (42-75); Platelet Count 198 thou/uL (130-400); RBC Distribution Width 12.4 % (11.5-14.5); Red Blood Cell (RBC) Count 2.84 mill/uL (4.20-5.40); Small Platelets SLIGHT; White Blood Cell (WBC) Count 14.9 thou/uL (4.8-10.8)
[2018-02-10 19:38] VITALS: BMI 18.8
[2018-02-10] MEDS ORDERED: Acetaminophen 325 MG TAB PO PRN (19:45)
[2018-02-10] MEDS: Dextrose 5 %-0.45 % NaCl 1,000 ML IV SCH (22:32)
[2018-02-10] MEDS ORDERED: Acetaminophen 650 MG Suppository PR PRN (22:34)
[2018-02-11] MEDS: Dextrose 5 %-0.45 % NaCl 1,000 ML IV SCH ×3 (05:17→22:15)
[2018-02-11] MEDS ORDERED: Cyanocobalamin 1000 MCG/ML VIAL IM SCH (07:30)
[2018-02-11 07:50] LABS: #Lymphocytes 2.3 thou/uL (1.20-3.40); #Monocytes 0.7 thou/uL (0.11-0.59); #Neutrophils 8.4 thou/uL (1.40-6.50); %Basophils 0.3 % (0.0-1.0); %Lymphocytes 19.8 % (21.0-51.0); %Monocytes 6.3 % (0.0-10.0); %Neutrophils 73.6 % (42.0-75.0); Hemoglobin 10.6 g/dL (12.0-16.0); Mean Corpuscular HGB CONC 36.1 g/dL (32.0-36.0); Mean Corpuscular Hemoglobin 32.1 pg (27.0-31.0); Mean Corpuscular Volume 88.7 fL (78.0-98.0); Mean Platelet Volume 5.5 fL (7.4-10.4); Platelet Count 138 thou/uL (130-400); RBC Distribution Width 12.7 % (11.5-14.5); Red Blood Cell (RBC) Count 3.31 mill/uL (4.20-5.40); White Blood Cell (WBC) Count 11.4 thou/uL (4.8-10.8)
[2018-02-11 08:43] LABS: ALT (SGPT) 77 U/L (8-55); AST (SGOT) 111 U/L (5-34); Albumin 2.8 g/dL (3.4-4.8); Alkaline Phosphatase 76 U/L (40-150); Anion Gap 16 mmol/L (10-20); BUN (Urea Nitrogen) 22 mg/dL (9.8-20.1); Bilirubin, Total 0.5 mg/dL (0.2-1.2); Calc. Creatinine Clearance 55 mL/min (70-130); Calcium 8.3 mg/dL (7.8-10.44); Carbon Dioxide 9 mmol/L (23-31); Chloride 117 mmol/L (98-107); Estimated GFR-MDRD 76; Globulin 3.1 g/dL (2.4-3.5); Glucose 117 mg/dL (80-115); Potassium 4.8 mmol/L (3.5-5.1); Protein, Total 5.9 g/dL (6.0-8.3); Sodium 137 mmol/L (136-145)
[2018-02-11] MEDS ORDERED: Non-Formulary Item 1 EACH (Multivitamin [Multi-Vitamin Daily] 1 TAB) PO SCH (09:00)
[2018-02-11] MEDS ORDERED: Prevnar 13-Val Conj/PF 0.5 ML SYRINGE IM ONE (09:00)
[2018-02-11] MEDS ORDERED: MEMANTINE HCL 10 MG PO SCH (09:00)
[2018-02-11] MEDS ORDERED: MELOXICAM 15 MG PO SCH (09:00)
[2018-02-11] MEDS ORDERED: Non-Formulary Item 1 EACH (Famotidine [Famotidine] 40 MG) PO SCH (09:00)
[2018-02-11] MEDS: Acetaminophen ER (8hr) 650 MG TAB PO SCH ×3 (10:17→20:58)
[2018-02-11] MEDS: Famotidine 20 MG TAB PO SCH ×2 (10:26→20:56)
[2018-02-11] MEDS: Meloxicam 7.5 MG TAB PO SCH (10:31)
[2018-02-11] MEDS: risperiDONE 0.5 MG TAB PO SCH ×2 (10:32→20:57)
[2018-02-11] MEDS: Montelukast Sodium 10 mg Tablet PO SCH (10:32)
[2018-02-11] MEDS: Multivit, Therapeutic 1 TAB PO SCH (10:33)
--- NOTE | 2018-02-11 14:46 | CT ---
CT OF THE SOFT TISSUES OF THE NECK: INDICATIONS: Soft tissue mass, left side of the neck. COMPARISON: None. CONTRAST: Isovue-370 100 mL was administered. FINDINGS: The visualized intracranial contents appear within normal limits. Dental amalgam produces spray artifact, which limits evaluation of the oral cavity. There is a 1.2 cm, gas-filled outpouching extending from the left piriform sinus out the left aspect of the thyrohyoid membrane on image 43 of series 2, most consistent with a small, external laryngocel e. There is some gas seen within the right aspect of the piriform sinus, likely related to trapped g as within coapted folds of the right piriform sinus. The pre-epiglottic fat pad is preserved. The e piglottis is normal appearing. The false and true vocal cords appear within normal limits. The parapharyngeal space appears within normal limits. The client architect space appears within normal li mits. The visualized parotid and submandibular glands are normal appearing. There is a tiny hypoden sity that is subcentimeter in size involving the left mid thyroid gland, measuring 4.6 mm. There are a few mildly prominent left supraclavicular lymph nodes, with the largest measuring up to 5 mm. There are mildly prominent lymph nodes within the upper mediastinum, predominantly in the parat nakia region, measuring just over a centimeter. The largest seen measures 1.2 cm (image 81). Ther e is a prominent lymph node seen within the right tracheobronchial region, measuring 1.2 cm. There a re small bilateral pleural effusions. There is scattered mild emphysema. There is interstitial kandis a. No definite acute osseous abnormality is evident. There is scattered degenerative and osteoarthritic change. IMPRESSION: 1. No definite soft tissue mass seen at the left aspect of the neck. 2. There is an air filled external laryngocele seen protruding from the left piriform sinus out the lateral aspect of the left thyrohyoid membrane, measuring 1.2 cm. Ears, nose, and throat consultatio n is recommended for further evaluation. 3. Small bilateral pleural effusions and biapical interstitial edema, suspicious for changes of ace estive heart failure. 4. Nonspecific enlarged lymph nodes of the upper mediastinum and left supraclavicular region. POS: [facility]
--- NOTE | 2018-02-11 16:19 | HP ---
DATE OF ADMISSION: 02/10/2018 CHIEF COMPLAINT: Fever. HISTORY OF PRESENT ILLNESS: A 67-year-old female resident of [facility] who was sent to [facility] Emergency Department yesterday afternoon secondary to increasing temperatures with T-max of 103 and accompanying confusion. She has underlying dementia and is typically a poor historian. I have spoken with the nurse practitioner at the skilled nursing who sent the patient over, who noted decreasing intake, worsening confusion and accompanying fever. In the emergency department, labs revealed the patient to have a urinary tract infection, leukocytosis with left shift and dehydration. She was subsequently started empirically on Rocephin and has been started on D5 half normal saline at 150 mL an hour. Blood and urine cultures have been obtained as appropriate. She does not appear to have good insight into her current condition; she is alert but not oriented. PAST MEDICAL HISTORY: Dementia, anxiety, depression and hyperlipidemia. PAST SURGICAL HISTORY: Cholecystectomy. ALLERGIES: PENICILLIN. SOCIAL HISTORY: She is a resident of [facility]. No alcohol , smoking or illicit drug use. FAMILY HISTORY: Noncontributory. CURRENT MEDICATIONS: Celexa 30 mg p.o. at bedtime, cyanocobalamin 1000 mcg IM monthly, donepezil 10 mg p.o. at bedtime, famotidine 40 mg p.o. b.i.d., Mobic 15 mg p.o. daily, Namenda 10 mg p.o. daily, Singulair 10 mg p.o. daily, risperidone 0.5 mg p.o. b.i.d., simvastatin 10 mg p.o. at bedtime. REVIEW OF SYSTEMS: Unable to obtain secondary to patient's mental status. LABORATORY DATA: Initial labs showed a white blood cell count of 14.9 with left shift and repeat labs this morning show white blood count to be 11.4, hemoglobin and hematocrit is 10.6 and 29.4. Sodium 137, potassium 4.8, anion gap is normal at 16, carbon dioxide initially 18 yesterday and it is 9 today. BUN yesterday 30, today is 22; creatinine yesterday 0.90, today is 0.76; GFR increased from 63 yesterday, it is 76 today. LFTs little elevated with AST at 111 and ALT at 77. Yesterday's lactic acid was 0.8. Urine as of yesterday was turbid with protein, large blood, positive for nitrites and leukocyte esterase, 2+ bacteria. IMAGING DATA: Chest x-ray showed no acute findings. PHYSICAL EXAMINATION: VITAL SIGNS: This morning 97.9, pulse 79, respiratory rate is 20, oxygen is 99 % on room air, blood pressure 98/51. GENERAL: The patient is alert, but not oriented. She is somewhat restless with noted pallor. HEENT: Normocephalic, atraumatic. Pupils are equal, round, and reactive to light. Extraocular muscles are intact. Sclerae are clear. NECK: Supple, with no meningeal signs. SKIN: There is a soft tissue mass to the left lateral neck. CARDIOVASCULAR: Regular rate and rhythm, no murmurs, rubs or gallops. Normal S1, S2. RESPIRATORY: Clear to auscultation bilaterally without wheezes, rales or rhonchi. GASTROINTESTINAL: Soft, nontender to palpation, no masses. EXTREMITIES: No clubbing, cyanosis or edema. SKIN: No rashes. NEUROLOGIC: Nonfocal. Cranial nerves II-XII are grossly intact. ASSESSMENT AND PLAN: 1. Sepsis, appears likely to urinary tract infection. We will follow up the urine culture and blood culture as well. The patient's leukocytosis is trending down appropriately after initiation of Rocephin empirically. I have added IV Levaquin for broader base coverage at this time. Lactic acid as noted was within normal limits. She does display an acidosis per her bicarb level; however, this is felt to be secondary to the patient being anxious with some mild tachypnea, she has since calmed down and has clonazepam available to help keep her calm. We will repeat CBC and CMP in the morning. 2. Urinary tract infection. Follow up urine culture. Continue antibiotics and plan for transition to p.o. antibiotics when able. 3. Dehydration. Patient was initially placed n.p.o. and started on IV D5 half normal saline at 150 mL an hour. We will continue IV fluids as her BUN and creatinine gap closes and I have started her on a full liquid diet which she has tolerated thus far. 4. Dementia. Chronic issue, slowly progressive, we will continue her usual medications. 5. Anxiety with depression. We will resume her SSRI and I have added clonazepam as noted. 6. Soft tissue mass on the left lateral neck. I have ordered a CT scan with contrast to assess this further. 7. Prophylaxis. The patient is on famotidine for gastrointestinal prophylaxis. We will add Lovenox for deep venous thrombosis prophylaxis. CODE STATUS: FULL. MTDD
[2018-02-11] MEDS ORDERED: cefTRIAXone\\ROCEPHIN 1 GM in Sodium Chloride 0.9% 100 ML IVPB SCH (17:00)
[2018-02-11] MEDS: Citalopram 20 MG TAB PO SCH (20:57)
[2018-02-11] MEDS: Donepezil HCl 10 MG TAB PO SCH (20:57)
[2018-02-11] MEDS ORDERED: Non-Formulary Item 1 EACH (Simvastatin [Zocor] 10 MG) PO SCH (21:00)
[2018-02-11] MEDS ORDERED: Atorvastatin Calcium 10 MG TAB PO SCH (21:00)
[2018-02-11] MEDS ORDERED: Simvastatin 20 MG TAB PO SCH (21:00)
[2018-02-11] MEDS ORDERED: DONEPEZIL HCL 10 MG PO SCH (21:00)
[2018-02-11] MEDS ORDERED: CITALOPRAM PO SCH (21:00)
[2018-02-11] MEDS: clonazePAM 0.5 MG TAB PO SCH (23:05)
[2018-02-12] MEDS: Acetaminophen ER (8hr) 650 MG TAB PO SCH ×4 (02:23→21:23)
[2018-02-12 05:57] LABS: #Lymphocytes 1.1 thou/uL (1.20-3.40); #Monocytes 0.4 thou/uL (0.11-0.59); #Neutrophils 6.3 thou/uL (1.40-6.50); %Basophils 0.4 % (0.0-1.0); %Eosinophils 0.1 % (0.0-10.0); %Lymphocytes 13.9 % (21.0-51.0); %Monocytes 5.3 % (0.0-10.0); %Neutrophils 80.3 % (42.0-75.0); Hemoglobin 9.3 g/dL (12.0-16.0); Mean Corpuscular HGB CONC 35.2 g/dL (32.0-36.0); Mean Corpuscular Hemoglobin 31.4 pg (27.0-31.0); Mean Corpuscular Volume 89.1 fL (78.0-98.0); Mean Platelet Volume 5.5 fL (7.4-10.4); Platelet Count 146 thou/uL (130-400); RBC Distribution Width 12.5 % (11.5-14.5); Red Blood Cell (RBC) Count 2.97 mill/uL (4.20-5.40); White Blood Cell (WBC) Count 7.8 thou/uL (4.8-10.8)
[2018-02-12 06:08] LABS: ALT (SGPT) 94 U/L (8-55); AST (SGOT) 109 U/L (5-34); Albumin 2.9 g/dL (3.4-4.8); Alkaline Phosphatase 120 U/L (40-150); Anion Gap 13 mmol/L (10-20); BUN (Urea Nitrogen) 17 mg/dL (9.8-20.1); Bilirubin, Total 0.5 mg/dL (0.2-1.2); Calc. Creatinine Clearance 61 mL/min (70-130); Calcium 8.5 mg/dL (7.8-10.44); Carbon Dioxide 16 mmol/L (23-31); Chloride 112 mmol/L (98-107); Estimated GFR-MDRD 85; Globulin 2.4 g/dL (2.4-3.5); Glucose 96 mg/dL (80-115); Potassium 3.6 mmol/L (3.5-5.1); Protein, Total 5.3 g/dL (6.0-8.3); Sodium 137 mmol/L (136-145)
[2018-02-12] MEDS: Montelukast Sodium 10 mg Tablet PO SCH (08:53)
[2018-02-12] MEDS: Multivit, Therapeutic 1 TAB PO SCH (08:53)
[2018-02-12] MEDS: Famotidine 20 MG TAB PO SCH ×2 (08:53→21:23)
[2018-02-12] MEDS: Meloxicam 7.5 MG TAB PO SCH (08:55)
[2018-02-12] MEDS: risperiDONE 0.5 MG TAB PO SCH ×2 (08:55→21:23)
[2018-02-12] MEDS: clonazePAM 0.5 MG TAB PO SCH (08:56)
[2018-02-12] MEDS ORDERED: Enoxaparin Sodium 30 MG/0.3 ML SYRINGE SC SCH (09:00)
[2018-02-12] MEDS ORDERED: clonazePAM 1 MG TAB PO SCH (10:45)
[2018-02-12] MEDS: Dextrose 5 %-0.45 % NaCl 1,000 ML IV SCH ×2 (11:33→14:20)
[2018-02-12] MEDS ORDERED: cefTRIAXone\\ROCEPHIN 1 GM VIAL IVPB SCH (12:30)
[2018-02-12] MEDS ORDERED: cefTRIAXone\\ROCEPHIN 2 GM in Sodium Chloride 0.9% 100 ML IVPB SCH (12:30)
--- NOTE | 2018-02-12 14:33 | PRG ---
DATE OF SERVICE: 02/12/2018 SUBJECTIVE: The patient denies any pain. Denies any shortness of breath. The patient is still running low grade fever. Her blood pressure remains on the low side. OBJECTIVE: VITAL SIGNS: Blood pressure 100/54, temperature of 100.7, respiratory rate of 20, O2 saturation 94% on room air, heart rate 92 per minute. GENERAL: The patient is awake, poor verbal output with spontaneous movement. HEENT: Normocephalic, atraumatic. Pupils equally reactive to light. Dry mucous membrane. NECK: Supple. Negative for lymphadenopathy. CHEST AND LUNGS: Symmetrical expansion. Clear to auscultation bilaterally. HEART: Regular rate and rhythm. GASTROINTESTINAL: Flat, soft, nontender, normoactive bowel sounds. EXTREMITIES: Positive for contracture on both upper and lower extremities. SKIN: No lesions or rashes. NEUROLOGIC: Significant for poor neurologic status, cannot assess. LABORATORY: 1. CBC: WBC of 7.8, hemoglobin of 9.3, hematocrit of 26, platelet count of 146. 2. BMP: Sodium of 137, potassium of 3.6, chloride of 112, carbon dioxide of 16 , BUN of 17, creatinine of 0.69, AST of 109, ALT of 94. 3. Blood culture x2, both negative. Urine culture showed presence of Proteus mirabilis resistant to Levaquin, nitrofurantoin, Bactrim, and Cipro. ASSESSMENT: 1. Ms. Coker is a 67-year-old female with sepsis secondary to urinary tract infection. Her white count is within normal; however, her urine culture showed Proteus mirabilis resistant to present IV antibiotics. We will adjust Rocephin to 2 grams every 24 hours and discontinue Levaquin. 2. Hypotension. We will continue fluid hydration. Increase rate to D5 half normal saline 100 mL 3. Elevated liver function. Likely secondary to sepsis. We will continue to monitor. 4. Dementia, stable. Continue on present medication. 5. Anxiety with depression. Continue present SSRI and p.r.n., clonazepam. 6. Continue GI prophylaxis with famotidine. 7. Continue Lovenox for DVT prophylaxis. MTDD
[2018-02-12] MEDS: clonazePAM 1 MG TAB PO SCH (21:23)
[2018-02-12] MEDS: Donepezil HCl 10 MG TAB PO SCH (21:23)
[2018-02-12] MEDS: Citalopram 20 MG TAB PO SCH (21:23)
[2018-02-13] MEDS: Dextrose 5 %-0.45 % NaCl 1,000 ML IV SCH (00:21)
[2018-02-13] MEDS: Acetaminophen ER (8hr) 650 MG TAB PO SCH ×2 (01:54→10:18)
[2018-02-13 05:56] LABS: Albumin 2.4 g/dL (3.4-4.8); BUN (Urea Nitrogen) 11 mg/dL (9.8-20.1); Calc. Creatinine Clearance 67 mL/min (70-130); Calcium 7.8 mg/dL (7.8-10.44); Chloride 117 mmol/L (98-107); Estimated GFR-MDRD Greater than 90; Globulin 2.1 g/dL (2.4-3.5); Glucose 108 mg/dL (80-115); Potassium 3.3 mmol/L (3.5-5.1); Protein, Total 4.5 g/dL (6.0-8.3); Sodium 141 mmol/L (136-145)
[2018-02-13 06:19] LABS: Carbon Dioxide 16 mmol/L (23-31)
[2018-02-13 06:22] LABS: Anion Gap 11 mmol/L (10-20)
[2018-02-13 06:26] LABS: ALT (SGPT) 110 U/L (8-55); AST (SGOT) 121 U/L (5-34); Alkaline Phosphatase 268 U/L (40-150); Bilirubin, Total 0.3 mg/dL (0.2-1.2)
[2018-02-13 08:15] VITALS: BP 93/48; TEMP 97.8
[2018-02-13] MEDS ORDERED: Enoxaparin Sodium 40 MG/0.4 ML SYRINGE SC SCH (09:00)
[2018-02-13] MEDS: Montelukast Sodium 10 mg Tablet PO SCH (09:44)
[2018-02-13] MEDS: risperiDONE 0.5 MG TAB PO SCH (09:44)
[2018-02-13] MEDS: Famotidine 20 MG TAB PO SCH (09:44)
[2018-02-13] MEDS: clonazePAM 1 MG TAB PO SCH (09:45)
[2018-02-13] MEDS: Multivit, Therapeutic 1 TAB PO SCH (09:45)
--- NOTE | 2018-02-13 10:35 | RAD ---
PORTABLE CHEST: Date: 02/13/18 HISTORY: Cough. COMPARISON: 02/10/18. FINDINGS: Breast prostheses obscure detail. No definite infiltrate. No evidence of vascular congestion. Heart s ize normal. IMPRESSION: No definite infiltrate. The lung bases are obscured by the overlying breast prostheses. Upright PA an d lateral views would provide better evaluation of the chest. POS: [facility]
[2018-02-13] MEDS ORDERED: cefTRIAXone\\ROCEPHIN 1 GM in Sodium Chloride 0.9% 100 ML IVPB SCH (12:15)
--- NOTE | 2018-02-13 15:01 | DIS ---
PRIMARY CARE PHYSICIAN: Dr. Teddy Farley. DISCHARGE ATTENDING: Jeannette Jones M.D. FINAL DIAGNOSES: 1. Urinary tract infection with sepsis. 2. Hypotension. 3. Deconditioning. 4. Elevated liver enzymes, causes multifactorial . 5. Progressive dementia. 6. Anxiety. 7. Hyperlipidemia. HISTORY OF PRESENT ILLNESS/COURSE IN THE CARLOS: Ms. Coker is an unfortunate 67- year-old female, resident of [facility], with a history of progressive dementia, anxiety, and hyperlipidemia, who presented to [facility] ER on 02/10/2018 complaining of high fever, T-max of 103, associated with confusion. She also presented with decreased p.o. intake and generalized weakness. At the emergency room, initial workup showed WBC of 14.9, hemoglobin of 9, hematocrit of 25, with predominance of neutrophils of 81, platelet count is 198. Her comprehensive metabolic panel showed a slight elevation of her AST. Her urinalysis demonstrated a large amount of blood, leukocyte esterase, WBC, and positive for nitrites. Her chest x-ray showed no abnormal findings. The patient was subsequently admitted for UTI with sepsis. She was started on IV Rocephin and Levaquin. Ms. Coker had low-grade fever the first 2 days. She had decreased oral intake that required assistance with feeding. Also, during her admission, noted that she has a left-sided neck mass. Hence, Dr. Farley ordered a soft tissue of the neck showing a soft tissue mass, presence of air- filled external laryngocele. Positive for small bilateral pleural effusions and positive for nonspecific enlarged lymph nodes of the upper mediastinum and left supraclavicular region. Patient's blood pressure remained on the low side. Hence, we continued her fluids for 72 hours. Her urine culture showed Proteus that was resistant to Levaquin. Hence, IV antibiotics was adjusted to Rocephin 2 grams every 24 hours. Her volume status gradually improved. However , latest labs showed elevated liver enzymes, AST of 121, ALT of 110, alkaline phosphatase of 268. We had discontinued all present medications that might be potentially causing liver toxicity. This was discussed with JESSE Hernandez on- call, at [facility]. He also advised to change present IV Rocephin to a safer IV antibiotics, if possible. Unfortunately, the next alternative IV antibiotics will be Zosyn,however, it has e 1% chance of increasing liver enzymes. The patient will be transferred to skilled unit to continue treatment of UTI with sepsis with IV antibiotics. CONDITION: Fair. ACTIVITY: Ad kishor. DIET: Full liquid. ALLERGIES: PENICILLIN. RESUSCITATION STATUS: FULL CODE. VITAL SIGNS: Routine/q. shift. MEDICATIONS: 1. Rocephin 1 gram IV q.24 hours. 2. Motrin 400 mg 1 tablet every 6 hours p.r.n. for fever. 3. Vitamin B12 1000 mcg IM injection every 30 days. 4. Aricept 10 mg at bedtime. 5. Lovenox 40 mg subcutaneous daily. 6. Namenda 10 mg daily. 7. Singulair 10 mg daily. 8. Multivitamin 1 tablet daily. 9. Risperdal 0.5 mg b.i.d. 10. Lab orders, CBC and comp met in a.m. 11. Consult PT and OT for evaluation and treatment. MTDD
== END 2018-02-13 14:18 | DRG 872 ==
LOC: BURERS 16:15 → BURMED 18:52
PROVIDERS: ADMIT Family Medicine; ATTEND Family Medicine
DX: A41.9 Sepsis, unspecified organism (principal); N39.0 Urinary tract infection, site not specified; E87.2 Acidosis; Q31.3 Laryngocele; J90 Pleural effusion, not elsewhere classified; E86.0 Dehydration; E78.5 Hyperlipidemia, unspecified; M79.9 Soft tissue disorder, unspecified; I95.9 Hypotension, unspecified; F41.8 Other specified anxiety disorders; R74.8 Abnormal levels of other serum enzymes; R59.0 Localized enlarged lymph nodes; G30.9 Alzheimer's disease, unspecified; F02.80 Dementia in other diseases classified elsewhere, unspecified severity, without behavioral disturbance, psychotic disturbance, mood disturbance, and anxiety; J44.9 Chronic obstructive pulmonary disease, unspecified; F22 Delusional disorders; F29 Unspecified psychosis not due to a substance or known physiological condition; D64.9 Anemia, unspecified
CPT/HCPCS: 36415; 51701; 70491; 71045; 80053; 81003; 81015; 83605; 85025; 87040; 87077; 87086; 87186; 96361; 96365; 96367; A4216; A4353; J0696; J1650; J1956; J3370; J7050

== ENCOUNTER 2018-02-13 09:04 | Inpatient (IN) | payer MEDICARE, BC, MEDICAID ==
[2018-02-13 14:57] VITALS: BMI 18.8
[2018-02-13] MEDS ORDERED: ALPRAZolam 0.5 MG TAB PO PRN (15:09)
[2018-02-13] MEDS ORDERED: Ibuprofen 200 MG TAB PO PRN (15:10)
[2018-02-13] MEDS ORDERED: Donepezil HCl 10 MG TAB PO SCH (21:00)
[2018-02-13] MEDS: risperiDONE 0.5 MG TAB PO SCH (21:24)
[2018-02-14 06:27] LABS: ALT (SGPT) 118 U/L (8-55); AST (SGOT) 110 U/L (5-34); Albumin 2.4 g/dL (3.4-4.8); Alkaline Phosphatase 481 U/L (40-150); Anion Gap 11 mmol/L (10-20); BUN (Urea Nitrogen) 11 mg/dL (9.8-20.1); Bilirubin, Total 0.4 mg/dL (0.2-1.2); Calc. Creatinine Clearance 71 mL/min (70-130); Calcium 7.9 mg/dL (7.8-10.44); Carbon Dioxide 18 mmol/L (23-31); Chloride 115 mmol/L (98-107); Estimated GFR-MDRD Greater than 90; Globulin 2.2 g/dL (2.4-3.5); Glucose 86 mg/dL (80-115); Potassium 3.2 mmol/L (3.5-5.1); Protein, Total 4.6 g/dL (6.0-8.3); Sodium 141 mmol/L (136-145)
[2018-02-14 06:28] LABS: #Basophils 0.1 thou/uL (0.0-0.2); #Lymphocytes 1.9 thou/uL (1.20-3.40); #Monocytes 0.5 thou/uL (0.11-0.59); #Neutrophils 2.3 thou/uL (1.40-6.50); %Basophils 1.3 % (0.0-1.0); %Eosinophils 0.6 % (0.0-10.0); %Lymphocytes 38.7 % (21.0-51.0); %Monocytes 11.2 % (0.0-10.0); %Neutrophils 48.2 % (42.0-75.0); Hemoglobin 8.2 g/dL (12.0-16.0); Mean Corpuscular HGB CONC 35.6 g/dL (32.0-36.0); Mean Corpuscular Hemoglobin 31.2 pg (27.0-31.0); Mean Corpuscular Volume 87.8 fL (78.0-98.0); Mean Platelet Volume 5.6 fL (7.4-10.4); Platelet Count 150 thou/uL (130-400); RBC Distribution Width 12.5 % (11.5-14.5); Red Blood Cell (RBC) Count 2.62 mill/uL (4.20-5.40); White Blood Cell (WBC) Count 4.8 thou/uL (4.8-10.8)
[2018-02-14 07:48] VITALS: BP 94/54
[2018-02-14] MEDS ORDERED: Potassium Chloride 20 MEQ TAB PO SCH (08:00)
[2018-02-14] MEDS ORDERED: Dextrose 5 %-0.45 % NaCl 1,000 ML IV SCH (08:00)
[2018-02-14] MEDS ORDERED: Enoxaparin Sodium 40 MG/0.4 ML SYRINGE SC SCH (09:00)
[2018-02-14] MEDS ORDERED: Multivit, Therapeutic 1 TAB PO SCH (09:00)
[2018-02-14] MEDS ORDERED: Montelukast Sodium 10 mg Tablet PO SCH (09:00)
[2018-02-14] MEDS: risperiDONE 0.5 MG TAB PO SCH (09:25)
[2018-02-14 11:50] VITALS: TEMP 97.1
[2018-02-14] MEDS ORDERED: cefTRIAXone\\ROCEPHIN 1 GM in Sodium Chloride 0.9% 100 ML IVPB SCH (12:00)
[2018-02-14] MEDS ORDERED: Piperacillin/Tazobactam 2.25 GM in Sodium Chloride 0.9% 100 ML IVPB SCH (14:00)
--- NOTE | 2018-02-15 08:38 | DIS ---
DATE OF ADMISSION: 02/13/2018 DATE OF DISCHARGE: 02/14/2018 PRIMARY CARE PHYSICIAN: Dr. Teddy Farley. DISCHARGE ATTENDING: Dr. Jeannette Jones. FINAL DIAGNOSES: 1. Cholestasis of sepsis. 2. Hypotension. 3. Possible left lower lobe pneumonia. 4. Urine culture with positive growth of Proteus mirabilis. 5. Progressive dementia with Lewy bodies. 6. Nonspecific laryngeal mass per recent CT scan of the neck. HISTORY OF PRESENT ILLNESS/COURSE IN THE CARLOS: Ms. Coker is an unfortunate 67- year-old white female, resident of [facility] with history of progressive dementia, anxiety, and hyperlipidemia presented to [facility] ER on 02/10/2018 complaining of high fever, T-max of 103 associated with confusion. She also was reported to have decreased oral intake and having progressive weakness. At the emergency room, initial workup showed WBC of 14.9 , hemoglobin of 9, hematocrit of 25 with predominance of neutrophils of 81 with platelet count of 198. Her comprehensive metabolic panel showed slight elevation of her AST. Urinalysis demonstrated large amount of blood, presence of leukocyte esterase, wbc, and positive for nitrites. Her lactic acid was normal. Her chest x-ray showed normal findings. She was subsequently admitted for UTI with sepsis. She was started on IV Rocephin and Levaquin and was given fluid hydration. Ms. Coker demonstrated fever the first 2 days. She had decreased oral intake throughout her stay requiring assistance with feeding. During her evaluation, she was noted to have left-sided neck mass. Hence CT of the neck was ordered showing presence of 1.2 cm gas filled outpouching from the left piriform sinus to the left aspect of the thyrohyoid membrane consistent with small external laryngocele also noted some gas within the right aspect of the piriform sinus. She had some small bilateral effusions suspicious for congestive heart failure and presence of nonspecific enlarged lymph nodes on the upper mediastinum and left supraclavicular region. Throughout this hospital stay, her blood pressure remained on the low side. She continued to receive IV fluids. Her urine culture showed positive for Proteus, resistant to Levaquin, hence we adjusted the IV antibiotics to Rocephin 2 grams every 24 hours. Her volume status gradually improved; however, her liver enzymes started to go up. Her AST on Wednesday was 121, ALT of 110 and alkaline phosphatase was 268. We discontinued all present medication that might be potentially causing liver toxicity. According to her night nurse, patient had fever of 101 at 11:30 last night, she was not as alert compared to her baseline. She had very poor oral intake over 24 hours. She had some wet cough. This morning, she was hard to arouse, but was able to get some movement. No verbal response. However, after 2 hours, she became unresponsive and hypotensive, systolic BP in the low 80s. We called for transfer to ED for further evaluation. Labs this morning showed significant elevation of her alkaline phosphatase, both AST and ALT are still high. Hemoglobin is trending down. DISPOSITION: Transferred to [facility]. DIET: N.p.o. IV FLUID: D5 half normal saline to run at 100 mL per hour. MEDICATIONS: 1. D5 half normal saline at 100 ml/hr. 2. Zosyn 2.2 grams IV per every 8 hours. CODE STATUS: FULL CODE. CONDITION: Guarded. MTDD
[2018-03-14] MEDS ORDERED: Cyanocobalamin 1000 MCG/ML VIAL IM SCH (14:18)
== END 2018-02-14 13:39 | disposition short-term general hospital (02) | DRG 871 ==
LOC: BURMED 14:18
PROVIDERS: ADMIT Family Medicine; ATTEND Family Medicine
DX: A41.9 Sepsis, unspecified organism (principal); K83.1 Obstruction of bile duct; J18.9 Pneumonia, unspecified organism; N39.0 Urinary tract infection, site not specified; G31.83 Neurocognitive disorder with Lewy bodies; F02.80 Dementia in other diseases classified elsewhere, unspecified severity, without behavioral disturbance, psychotic disturbance, mood disturbance, and anxiety; J38.7 Other diseases of larynx; F41.9 Anxiety disorder, unspecified; E78.5 Hyperlipidemia, unspecified; B96.4 Proteus (mirabilis) (morganii) as the cause of diseases classified elsewhere; Z88.0 Allergy status to penicillin; E86.0 Dehydration
CPT/HCPCS: 36415; 36416; 80053; 85025; A4216; J1650

== ENCOUNTER 2018-02-14 13:39 | Emergency (ER) | payer MEDICARE, BC, MEDICAID ==
[2018-02-14 14:28] LABS: CKMB 2.4 ng/mL (0-6.6); Troponin I Less than 0.010 ng/mL (< 0.028)
[2018-02-14 14:29] LABS: #Basophils 0.1 thou/uL (0.0-0.2); #Lymphocytes 1.8 thou/uL (1.20-3.40); #Monocytes 0.5 thou/uL (0.11-0.59); #Neutrophils 2.1 thou/uL (1.40-6.50); %Basophils 1.5 % (0.0-1.0); %Eosinophils 0.7 % (0.0-10.0); %Lymphocytes 39.9 % (21.0-51.0); %Monocytes 10.4 % (0.0-10.0); %Neutrophils 47.6 % (42.0-75.0); Anion Gap 10 mmol/L (10-20); Band 5 % (5-11); Hemoglobin 7.4 g/dL (12.0-16.0); Lymphocytes 44 % (21-51); MDiff Complete? YES; Mean Corpuscular HGB CONC 34.1 g/dL (32.0-36.0); Mean Corpuscular Hemoglobin 31.2 pg (27.0-31.0); Mean Corpuscular Volume 91.3 fL (78.0-98.0); Mean Platelet Volume 6.2 fL (7.4-10.4); Monocytes 6 % (0-10); Neutrophil 45 % (42-75); Platelet Count 130 thou/uL (130-400); RBC Distribution Width 13.6 % (11.5-14.5); Red Blood Cell (RBC) Count 2.38 mill/uL (4.20-5.40); White Blood Cell (WBC) Count 4.5 thou/uL (4.8-10.8)
[2018-02-14 15:03] LABS: Clarity Slightly Cloudy (Clear)
[2018-02-14 15:04] LABS: Bilirubin Negative (Negative); Blood, Urine Moderate (Negative); Glucose, Urine (Dipstick) Negative (Negative); Leukocyte Moderate (Negative); Nitrite Negative (Negative); Protein, Urine (Dipstick) Negative (Neg-Trace); Specific Gravity, Urine 1.005 (1.002-1.036); Urobilinogen 0.2 mg/dL (0.2-1.0)
[2018-02-14 15:06] LABS: Bacteria/HPF 1+ HPF (None Seen); Crystals/HPF None Seen HPF (Negative); Hyaline Casts/LPF NONE SEEN LPF (0-3 Hyaline); Other Casts/LPF None Seen LPF (0-3 Hyaline); Oval Fat Bodies/HPF None Seen HPF (None Seen); Renal Epithelial None Seen HPF (0-3); Sperm/HPF None Seen HPF (None Seen); Squamous Epithelial 0-3 HPF (0-3); Transitional Epithelial NONE SEEN HPF (0-3); Trichomonas/HPF None Seen HPF (None Seen); Yeast-All Forms None Seen HPF (None Seen)
[2018-02-14 15:12] LABS: ALT (SGPT) 116 U/L (8-55); AST (SGOT) 99 U/L (5-34); Albumin 2.5 g/dL (3.4-4.8); Alkaline Phosphatase 506 U/L (40-150); BUN (Urea Nitrogen) 10 mg/dL (9.8-20.1); Bilirubin, Total 0.4 mg/dL (0.2-1.2); CK (CPK) 62 U/L (29-168); Calc. Creatinine Clearance 0 mL/min (70-130); Calcium 8.2 mg/dL (7.8-10.44); Carbon Dioxide 21 mmol/L (23-31); Chloride 118 mmol/L (98-107); Estimated GFR-MDRD Greater than 90; Globulin 2.3 g/dL (2.4-3.5); Glucose 80 mg/dL (80-115); Lipase 14 U/L (8-78); Potassium 3.8 mmol/L (3.5-5.1); Protein, Total 4.8 g/dL (6.0-8.3); Sodium 145 mmol/L (136-145)
--- NOTE | 2018-02-14 15:33 | RAD ---
FRONTAL VIEW CHEST: Date: 02/14/18 COMPARISON: 02/13/18. INDICATION: Altered mental status. FINDINGS: Subtle patchy density at the left lower lung zone is present, partially obscured by overlying chest w all density. Right lung is grossly clear. Cardiomediastinal silhouette is accentuated by portable kwabena hnique. IMPRESSION: Focal patchy density at left lower lung zone, difficult to further assess due to overlying chest wall density superimposed within this region. Recommend follow-up with dedicated 2 view chest for further assessment. POS: [facility]
== END 2018-02-14 16:00 | disposition short-term general hospital (02) ==
LOC: BURERS 13:39
DX: A41.9 Sepsis, unspecified organism (principal); R41.82 Altered mental status, unspecified; N39.0 Urinary tract infection, site not specified; K21.9 Gastro-esophageal reflux disease without esophagitis; E78.5 Hyperlipidemia, unspecified; J44.9 Chronic obstructive pulmonary disease, unspecified; Z79.899 Other long term (current) drug therapy
CPT/HCPCS: 51701; 71045; 81003; 81015; 82550; 82553; 83605; 83690; 84484; 87040; 87149; 93005; 94760; 96361; 96365; 96375; A4353; J3370